=== PATIENT | male | born 1945 | race Caucasian/White ===

== ENCOUNTER 2018-08-18 21:08 | Inpatient (IN) | payer OTHER ==
[~2018-08-18] VITALS: Ht 165.1 cm; Wt 66.0 kg
[~2018-08-18 21:08] MED LIST: FLONS; LOSARTAN POTASS25 M1; MUCINEX600 MG PO; TESSALON PERLE100 MG PO
[2018-08-18 21:17] VITALS: Ht 165.1 cm; Wt 66.0 kg
[2018-08-18 22:35] LABS: BASOPHIL % 1.4 % (0-2); PLATELET COUNT 263 x10^3mcL (130-400)
[2018-08-18 22:40] LABS: RED CELL DISTRIBUTION WIDTH 14.6 % (11.5-14.5)
[2018-08-18 22:50] LABS: CALCIUM 8.8 mg/dL (8.5-10.1); CARBON DIOXIDE 26.2 mmol/L (21-32); CHLORIDE SERUM 110 mmol/L (98-107); CREATININE SERUM 1.1 mg/dL (0.7-1.3); GLUCOSE SERUM 103 mg/dL (74-106); POTASSIUM SERUM 3.6 mmol/L (3.5-5.1); SODIUM SERUM 144 mmol/L (136-145)
[2018-08-18 22:56] LABS: ALBUMIN 3.5 g/dL (3.4-5.0); ALKALINE PHOSPHATASE 83 U/L (46-116); ALT/SGPT 78 U/L (16-63); AST/SGOT 41 U/L (15-37); TOTAL PROTEIN, SERUM 7.7 g/dL (6.4-8.2)
[2018-08-19 01:31] VITALS: BP 150/60
[2018-08-19 02:36] LABS: CHOLESTEROL/HDL RATIO 2.5; MAGNESIUM 1.8 mg/dL (1.8-2.4); PHOSPHOROUS 2.9 mg/dL (2.5-4.9)
[2018-08-19 02:40] LABS: T3 TOTAL 1.31 ng/mL
[2018-08-19 02:50] LABS: FREE T4 0.94 ng/dL (0.76-1.46); FREE THYROXINE INDEX 2.7 ug/dL (1.4-4.5); T4(THYROXINE) 7.2 ug/dL (4.7-13.3)
[2018-08-19 04:16] LABS: UA SPECIFIC GRAVITY 1.015 (1.005-1.035); microscopic required? YES; urine erythrocyte TRACE (NEGATIVE)
[2018-08-19 04:26] LABS: AMPHETAMINE QUAL UR NONE DETECTED (See below)
[2018-08-19 05:40] VITALS: BP 124/49
[2018-08-19 06:22] LABS: CALCIUM 8.9 mg/dL (8.5-10.1); CHLORIDE SERUM 106 mmol/L (98-107); CREATININE SERUM 1.2 mg/dL (0.7-1.3); GLUCOSE SERUM 115 mg/dL (74-106); POTASSIUM SERUM 3.9 mmol/L (3.5-5.1); SODIUM SERUM 142 mmol/L (136-145)
[2018-08-19 06:39] LABS: BASOPHIL % 0.3 % (0-2); PLATELET COUNT 231 x10^3mcL (130-400); RED CELL DISTRIBUTION WIDTH 15.3 % (11.5-14.5)
[2018-08-19 08:27] VITALS: BP 139/53
[2018-08-19] MEDS ORDERED: LOPRESSOR50 M1 PO (12:10)
[2018-08-19 12:27] VITALS: BP 139/53
== END 2018-08-19 13:00 | disposition home or self-care (01) | DRG 206 ==
LOC: ED 21:08 → DU 08-19 00:23
PROVIDERS: Emergency Medicine; Internal Medicine
DX: M94.0 Chondrocostal junction syndrome [Tietze] (principal); K21.9 Gastro-esophageal reflux disease without esophagitis; E78.5 Hyperlipidemia, unspecified; I10 Essential (primary) hypertension; L40.9 Psoriasis, unspecified; Z68.24 Body mass index [BMI] 24.0-24.9, adult
CPT/HCPCS: 83880; 84439; 85378; 90658; 90732

== ENCOUNTER 2019-10-29 15:34 | Observation (INO) | payer OTHER ==
[~2019-10-29] VITALS: Ht 165.1 cm; Wt 63.0 kg
[~2019-10-29 15:34] MED LIST changes: +LOPRESSOR50 M1 PO
[2019-10-29 15:59] VITALS: Ht 165.1 cm; Wt 63.0 kg
[2019-10-29 16:50] LABS: BASOPHIL % 0.7 % (0-2); PLATELET COUNT 314 x10^3mcL (130-400)
[2019-10-29 17:23] LABS: CALCIUM 9.5 mg/dL (8.5-10.1); CARBON DIOXIDE 26.2 mmol/L (21-32); CHLORIDE SERUM 105 mmol/L (98-107); GLUCOSE SERUM 108 mg/dL (74-106); POTASSIUM SERUM 4.6 mmol/L (3.5-5.1); SODIUM SERUM 140 mmol/L (136-145)
[2019-10-29 17:26] LABS: ALBUMIN 3.8 g/dL (3.4-5.0); ALKALINE PHOSPHATASE 94 U/L (46-116); ALT/SGPT 34 U/L (16-63); AST/SGOT 22 U/L (15-37); BILIRUBIN TOTAL 0.7 mg/dL (0.20-1.00); LIPASE 143 IU/L (73-393)
[2019-10-29 17:27] LABS: TOTAL PROTEIN, SERUM 8.4 g/dL (6.4-8.2)
[2019-10-29 23:24] VITALS: BP 141/65
[2019-10-30 07:09] LABS: BASOPHIL % 0.5 % (0-2); PLATELET COUNT 268 x10^3mcL (130-400)
[2019-10-30 07:54] LABS: RED CELL DISTRIBUTION WIDTH 14.8 % (11.5-14.5)
[2019-10-30 08:09] LABS: CALCIUM 9.2 mg/dL (8.5-10.1); CARBON DIOXIDE 25.3 mmol/L (21-32); CHLORIDE SERUM 107 mmol/L (98-107); CREATININE SERUM 0.9 mg/dL (0.7-1.3); GLUCOSE SERUM 92 mg/dL (74-106); MAGNESIUM 2.3 mg/dL (1.8-2.4); PHOSPHOROUS 2.9 mg/dL (2.5-4.9); POTASSIUM SERUM 4.2 mmol/L (3.5-5.1); SODIUM SERUM 142 mmol/L (136-145)
[2019-10-30 09:14] VITALS: BP 118/61
[2019-10-30 12:38] VITALS: BP 126/57
[2019-10-30 14:21] VITALS: BP 126/57
== END 2019-10-30 14:38 | disposition home or self-care (01) ==
LOC: ED 15:34 → DU 22:16
PROVIDERS: Emergency Medicine; Internal Medicine Nephrology; ADMIT Internal Medicine Pulmonary Disease
DX: R07.2 Precordial pain (principal); I10 Essential (primary) hypertension; E78.5 Hyperlipidemia, unspecified; L40.9 Psoriasis, unspecified; R42 Dizziness and giddiness
CPT/HCPCS: G0378